=== PATIENT | male | born 1985 | race African-American/Black ===

== ENCOUNTER 2018-06-26 09:44 | Emergency (ER) | payer SELFPAY ==
[~2018-06-26] VITALS: Ht 177.8 cm; Wt 71.7 kg
[2018-06-26 10:17] VITALS: BP 140/91
[2018-06-26] MEDS ORDERED: AMOX1TAB61 PO (11:09)
--- NOTE | 2018-06-26 11:09 | PHYS DOC ---
Past Medical History Past Medical History: No Pertinent History Past Surgical History: Other Additional Past Surgical Histo: Rt arm laceration repair Alcohol Use: Occasionally Drug Use: Marijuana Adult General Chief Complaint Chief Complaint: SORE THROAT HPI HPI Patient is a 32 year old [f__sex] who presents with [] Review of Systems Review of Systems Constitutional: Denies fever or chills [] Eyes: Denies change in visual acuity, redness, or eye pain [] HENT: Denies nasal congestion or sore throat [] Respiratory: Denies cough or shortness of breath [] Cardiovascular: No additional information not addressed in HPI [] GI: Denies abdominal pain, nausea, vomiting, bloody stools or diarrhea [] : Denies dysuria or hematuria [] Musculoskeletal: Denies back pain or joint pain [] Integument: Denies rash or skin lesions [] Neurologic: Denies headache, focal weakness or sensory changes [] Endocrine: Denies polyuria or polydipsia [] All other systems were reviewed and found to be within normal limits, except as documented in this note. Current Medications Current Medications Current Medications Medications (Trade) Dose Ordered Sig/Emre Start Time Stop Time Status Last Admin Dose Admin Amoxicillin/ Clavulanate Potassium (Augmentin 875/ 125mg) 1 tab 1X ONCE 06/26/18 11:15 06/26/18 11:16 DC 06/26/18 11:26 1 TAB Dexamethasone (Decadron) 10 mg 1X ONCE 06/26/18 11:15 06/26/18 11:16 DC 06/26/18 11:26 10 MG Allergies Allergies Allergies Coded Allergies Type Severity Reaction Last Updated Verified No Known Drug Allergies 06/26/18 No Physical Exam Physical Exam Constitutional: Well developed, well nourished, no acute distress, non-toxic appearance. [] HENT: Normocephalic, atraumatic, bilateral external ears normal, oropharynx moist, no oral exudates, nose normal. [] Eyes: PERRLA, EOMI, conjunctiva normal, no discharge. [] Neck: Normal range of motion, no tenderness, supple, no stridor. [] Cardiovascular:Heart rate regular rhythm, no murmur [] Lungs & Thorax: Bilateral breath sounds clear to auscultation [] Abdomen: Bowel sounds normal, soft, no tenderness, no masses, no pulsatile masses. [] Skin: Warm, dry, no erythema, no rash. [] Back: No tenderness, no CVA tenderness. [] Extremities: No tenderness, no cyanosis, no clubbing, ROM intact, no edema. [] Neurologic: Alert and oriented X 3, normal motor function, normal sensory function, no focal deficits noted. [] Psychologic: Affect normal, judgement normal, mood normal. [] Current Patient Data Vital Signs Vital Signs Date Time Temp Pulse Resp B/P (MAP) Pulse Ox O2 Delivery O2 Flow Rate FiO2 06/26/18 10:17 98.4 75 18 140/91 (107) 99 Room Air 98.4 Lab Values Laboratory Tests Test 06/26/18 10:16 Group A Streptococcus Rapid Negative (NEGATIVE) Microbiology 06/26/18 Throat Culture - Final, Complete 06/26/18 - Final, Complete EKG EKG [] Radiology/Procedures Radiology/Procedures [] Course & Med Decision Making Course & Med Decision Making Pertinent Labs and Imaging studies reviewed. (See chart for details) [] Dragon Disclaimer Dragon Disclaimer This electronic medical record was generated, in whole or in part, using a voice recognition dictation system. Departure Departure Impression: Primary Impression: Pharyngitis Disposition: HOME, SELF-CARE Condition: STABLE Referrals: NO PCP (PCP) Patient Instructions: Viral and Bacterial Pharyngitis, Uevj-[id number] Scripts Amoxicillin/Potassium Clav (AUGMENTIN 875-125 TABLET) 1 Each Tablet 1 TAB PO BID, #14 TAB Prov: SHANIA KEANE DO 06/26/18 Problem Qualifiers Primary Impression: Pharyngitis Pharyngitis/tonsillitis etiology: unspecified etiology Qualified Codes: J02.9 - Acute pharyngitis, unspecified SHANIA KEANE DO Jun 26, 2018 11:09
[2018-06-26] MEDS ORDERED: DEXAMETHASONE 4 MG TABLET PO ONE (11:15)
[2018-06-26] MEDS ORDERED: AMOXICILLIN/K CLAV 875/125MG TABLET. PO ONE (11:15)
== END 2018-06-26 11:28 | disposition home or self-care (01) ==
LOC: ER 09:44
DX: J02.9 Acute pharyngitis, unspecified (principal)
CPT/HCPCS: 87070; 87880; 99283; J8540

== ENCOUNTER 2018-07-24 15:17 | Emergency (ER) | payer SELFPAY ==
[~2018-07-24] VITALS: Ht 177.8 cm; Wt 61.2 kg
[~2018-07-24 15:17] MED LIST: AMOX1TAB61 PO
[2018-07-24 15:34] VITALS: BP 147/73
--- NOTE | 2018-07-24 15:53 | PHYS DOC ---
Past Medical History Past Medical History: No Pertinent History Past Surgical History: Other Additional Past Surgical Histo: Rt arm laceration repair Alcohol Use: Occasionally Drug Use: Marijuana Adult General Chief Complaint Chief Complaint: LACERATION/AVULSION HPI HPI 32-year-old male presents to ER with complaints of laceration and injury to right middle finger. Patient reports last night around 9 or 10 PM he was "messing around" when he punched a wall. Patient has laceration to right middle finger with swelling to mid joint. Patient has complaints of tenderness into right hand. He denies right wrist pain. Patient denies any [id number] medications prior to ER visit for pain. Patient is not up-to-date on his tetanus in the past 5 years. Patient denies any other injury Review of Systems Review of Systems Constitutional: Denies fever or chills [] Musculoskeletal: Reports rt middle finger pain at lac site into dorsal surface of rt hand Integument: Reports laceration/swelling mid joint of rt middle finger Neurologic: Denies focal weakness or sensory changes [] All other systems were reviewed and found to be within normal limits, except as documented in this note. Current Medications Current Medications Current Medications Medications (Trade) Dose Ordered Sig/Emre Start Time Stop Time Status Last Admin Dose Admin Diphtheria/ Tetanus/Acell Pertussis (Boostrix) 0.5 ml ONCE ONCE 07/24/18 16:00 07/24/18 16:01 DC 07/24/18 16:04 0.5 ML Allergies Allergies Allergies Coded Allergies Type Severity Reaction Last Updated Verified No Known Drug Allergies 06/26/18 No Physical Exam Physical Exam Constitutional: Well developed, well nourished, no acute distress, non-toxic appearance. [] Neck: Normal range of motion, supple Cardiovascular:Heart rate regular Lungs & Thorax: Resp. equal/nonlabored Skin: Warm, dry Extremities: Lt upper extremity exam NL. Rt middle finger laceration mid joint dorsal surface- soft tissue at site with no deformity/ecchymosis/active bleeding. Patient is able to perform range of motion with all fingers he does have less range of motion in mid joint of right middle finger. Flexor tendon intact against resistance right middle finger. Capillary refill brisk in all fingers. 2+ radial and lateral. Mild tenderness and distal dorsal surface of right hand without swelling/ecchymosis. No tenderness and right wrist with full range of motion Neurologic: Alert and oriented X 3, normal motor function, normal sensory function, no focal deficits noted. [] Psychologic: Affect normal, judgement normal, mood normal. [] Current Patient Data Vital Signs Vital Signs Date Time Temp Pulse Resp B/P (MAP) Pulse Ox O2 Delivery O2 Flow Rate FiO2 07/24/18 15:34 98.4 76 16 147/73 (97) 99 Room Air 98.4 EKG EKG [] Radiology/Procedures Radiology/Procedures PROCEDURE: HAND RIGHT 3V EXAM: Right hand, 3 views. HISTORY: Middle finger injury. COMPARISON: None. FINDINGS: 3 views of the right hand are obtained. There is a tiny ossicle at the palmar aspect of the base of the third middle phalanx, the appearance of which favors a chronic nonunited fracture fragment. There is no dislocation or subluxation. IMPRESSION: Tiny ossicle along the palmar aspect of the base of the third middle phalanx. The imaging appearance favors a chronic nonunited fracture fragment. However, if there is point tenderness in this location, this may be acute. Electronically signed by: Lyssa Dubois MD (07/24/2018 4:46 PM) [place] [id number] DICTATED and SIGNED BY: LYSSA DUBOIS MD DATE: 07/24/18 1644 Course & Med Decision Making Course & Med Decision Making Pertinent Imaging studies reviewed. (See chart for details) 1650: Patient was evaluated in the ER for complaints of right middle finger injury which occurred yesterday. On imaging report noted that possible old fracture to right middle finger-patient reports he does believe he had injured his right middle finger years ago. Discussed imaging results with him and his significant other that could not completely rule out acute fracture as pt is mildly tender at area of concern on xray. Discussed plans for wound cleanse to laceration to dorsal surface and with wound been open since last night Steri- Strips would be applied with aluminum splint application to right middle finger. Discussed if symptoms persist patient to follow-up with orthopedic doctor for further care-will provide referral information with discharge paperwork. Discussed use of [id number] Tylenol and/or ibuprofen as needed for pain. Patient remains neuro and vascular intact in right upper extremity. Patient is in no distress during this discussion. Discharge instructions were discussed and education provided on signs and symptoms to return to ER for. Pt was updated on his tetanus while in ER. Staff Physician Addendum: I was working in the ER during the course of this patient's visit. I was available for consultation as needed, but I was not directly involved in the care of this patient. Dragon Disclaimer Dragon Disclaimer This electronic medical record was generated, in whole or in part, using a voice recognition dictation system. Departure Departure Impression: Primary Impression: Injury of finger of right hand Additional Impression: Laceration of finger Disposition: HOME, SELF-CARE Condition: STABLE Referrals: NO PCP (PCP) ANT MARTINEZ MD Patient Instructions: Hand Injuries, Laceration Care, Adult Additional Instructions: Tylenol and/or ibuprofen as needed for pain as directed on container. Ice pack to affected area every 3-4 hours for 20-30 minutes at a time. With aluminum splint to support finger and prevent reopening of laceration. Monitor skin for signs of infection and with any signs or concerns follow-up for reevaluation with orthopedics or primary care physician. Problem Qualifiers NATALYA GIRON APRN Jul 24, 2018 15:53 DHIRAJ WILLOUGHBY MD Jul 26, 2018 22:29
[2018-07-24] MEDS ORDERED: DIPHTH,PERTUSS(ACELL),TET TOX 0.5 ML DISP.SYRIN. VAX IM ONE (16:00)
--- NOTE | 2018-07-24 16:50 | RAD ---
EXAM: Right hand, 3 views. HISTORY: Middle finger injury. COMPARISON: None. FINDINGS: 3 views of the right hand are obtained. There is a tiny ossicle at the palmar aspect of the base of the third middle phalanx, the appearance of which favors a chronic nonunited fracture fragment. There is no dislocation or subluxation. IMPRESSION: Tiny ossicle along the palmar aspect of the base of the third middle phalanx. The imaging appearance favors a chronic nonunited fracture fragment. However, if there is point tenderness in this location, this may be acute. Electronically signed by: Lyssa Jean-Baptiste MD (07/24/2018 4:46 PM) [facility]
== END 2018-07-24 17:49 | disposition home or self-care (01) ==
LOC: ER 15:17
DX: S61.212A Laceration without foreign body of right middle finger without damage to nail, initial encounter (principal); X58.XXXA Exposure to other specified factors, initial encounter; Y93.89 Activity, other specified; Y92.89 Other specified places as the place of occurrence of the external cause; Y99.8 Other external cause status
CPT/HCPCS: 29130; 73130; 90471; 90715; 99283